=== PATIENT | female | born 1955 | race Caucasian/White ===

== ENCOUNTER 2017-09-25 07:13 | Emergency (ER) | payer BC ==
[2017-09-25] MEDS ORDERED: Ketorolac INJ* 30 MG/ML 1 ML VIAL IV ONE (07:45)
[2017-09-25] MEDS ORDERED: NS 0.9% 1000 ML* 1,000 ML IV ONE (07:45)
--- NOTE | 2017-09-25 09:05 | RAD ---
HISTORY: Neck pain, worse on right COMPARISONS: October 28, 2014 TECHNIQUE: Multiple contiguous axial CT scans were obtained of the cervical spine without intravenous contrast, with coronal and sagittal multiplanar reformations. FINDINGS: BRAIN: The visualized brain is unremarkable CENTRAL CANAL: Evaluation of the central canal is limited on CT technique; however, there is no obvious canalicular mass or epidural hemorrhage. ALIGNMENT: There is straightening of the cervical lordosis. VERTEBRAL BODIES: There is anterolateral marginal osteophyte formation most pronounced at C5-C6 and C6-C7. JOINTS: There is diffuse uncovertebral and facet osteoarthritis. 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 MUSCULATURE: Unremarkable INTERVERTEBRAL DISCS: There is diffuse loss of intervertebral disc height. AXIAL IMAGES: C2-C3: There is a partially calcified right lateral recess disc protrusion measuring 0.4 cm in depth. There is no osseous neural from narrowing or central canal stenosis. C3-C4: There is a mild broad-based disc osteophyte complex. There is a central calcified disc protrusion versus central posterior osteophyte measuring 0.3 cm in depth. There is bilateral uncovertebral hypertrophy. There is moderate left neural foraminal narrowing. There is no significant central canal stenosis. C4-C5: There is bilateral uncovertebral and facet hypertrophy. There is moderate left neural foraminal narrowing. There is no osseous central canal stenosis. C5-C6: There is a broad-based disc osteophyte convex bilateral uncovertebral facet hypertrophy. There is severe bilateral neural foraminal narrowing. There is mild narrowing of the central canal. C6-C7: There is no osseous neural foraminal narrowing or central canal stenosis. C7-T1: There is no osseous neural foraminal narrowing or central canal stenosis. SOFT TISSUES: The visualized soft tissues of the neck are unremarkable. The prevertebral fat stripe is preserved. OTHER: None. IMPRESSION: 1. DEGENERATIVE DISC DISEASE AND OSTEOARTHRITIS. 2. THERE IS MILD NARROWING OF THE CENTRAL CANAL AT C5-C6. 3. THERE IS MULTILEVEL NEURAL FORAMINAL NARROWING DESCRIBED ABOVE.
[2017-09-25] MEDS ORDERED: oxyCODONE/Acetamin 5/325 MG* TAB PO ONE (09:47)
[2017-09-25] MEDS ORDERED: Methocarbamol TAB* 500 MG PO ONE (09:47)
[2017-09-25 10:21] VITALS: BP 125/52
--- NOTE | 2017-09-25 17:51 | ED ---
Tai Owens Thomas, scribed for Rajesh Birto MD on 09/25/17 at 0737 . Neck Pain - HPI Summary HPI Summary: The patient is a 62 year old female complaining of neck pain and neck stiffness that began two days ago but significantly worsened this morning. The pain located on the right side of her neck. She complains of some right shoulder pain when she moves her right arm. Yesterday, she took ibuprofen and Robaxin 750 mg for the pain. She did not take any pain medication so far today. She denies weakness and numbness. - History of Current Complaint Chief Complaint: EDNeckComplaint Stated Complaint: NECK PAIN Time Seen by Provider: 09/25/17 07:29 Hx Obtained From: Patient Mechanism Of Injury: No Known Trauma Timing: Constant Onset/Duration: Started days ago - 2, Still Present, Worse Since - this AM Severity Currently: Severe Pain Intensity: 8 Pain Scale Used: 0-10 Numeric Location: Discrete At: - right side of neck Aggravating Factors: Movement Alleviating Factors: Nothing Associated Signs & Symptoms: Positive: Negative - numbness. Negative: Fever, Weakness - Allergies/Home Medications Allergies/Adverse Reactions: Allergies Allergy/AdvReac Type Severity Reaction Status Date / Time Iodinated Contrast- Oral and Allergy Severe Hives Verified 09/25/17 08:20 IV Dye PMH/Surg Hx/FS Hx/Imm Hx Musculoskeletal History: Reports: Hx Back Problems Denies: Hx Osteoporosis Sensory History: Denies: Hx Legally Blind, Hx Deafness EENT History: Denies: Hx Deafness - Cancer History Hx Chemotherapy: No Hx Radiation Therapy: No - Surgical History Surgery Procedure, Year, and Place: gastric bypass surgery, 4 laminectomies Infectious Disease History: No Infectious Disease History: Denies: Traveled Outside the [place] in Last 30 Days - Family History Known Family History: Positive: Diabetes, Renal Disease - Social History Alcohol Use: None Substance Use Type: Reports: None Smoking Status (MU): Never Smoked Tobacco Review of Systems Negative: Fever Positive: Other - Neck pain, neck stiffness, right shoulder pain Negative: Weakness, Numbness All Other Systems Reviewed And Are Negative: Yes Physical Exam - Summary Physical Exam Summary: General: well-appearing, no pain distress Skin: warm, color reflects adequate perfusion, dry Head: normal Eyes: EOMI, ALLISON ENT: normal Neck: She is tender to palpation to the right posterior lateral neck. She has pain with any range of motion of the neck. She has pain in the right neck with movement of the right shoulder. Respiratory: CTA, breath sounds present Cardiovascular: RRR Abdomen: soft, nontender Bowel: present Musculoskeletal: She has pain with any range of motion of the neck. She has pain in the right neck with movement of the right shoulder. , 5/5 strength, and no sensation deficit. The hands have good capillary refill. Neurological: normal, sensory/motor intact, A&O x3 Psychological: affect/mood appropriate Triage Information Reviewed: Yes Vital Signs On Initial Exam: Initial Vitals Temp Pulse Resp BP Pulse Ox 97.2 F 67 18 133/66 100 09/25/17 07:17 09/25/17 07:17 09/25/17 07:17 09/25/17 07:17 09/25/17 07:17 Vital Signs Reviewed: Yes Diagnostics - Vital Signs Vital Signs Temp Pulse Resp BP Pulse Ox 09/25/17 07:17 97.2 F 67 18 133/66 100 - Laboratory Lab Statement: Any lab studies that have been ordered have been reviewed, and results considered in the medical decision making process. - CT CT C-Spine CT Interpretation: No Acute Changes - 1. DEGENERATIVE DISC DISEASE AND OSTEOARTHRITIS. 2. THERE IS MILD NARROWING OF THE CENTRAL CANAL AT C5-C6. 3. THERE IS MULTILEVEL NEURAL FORAMINAL NARROWING DESCRIBED ABOVE. Dr. Brito has reviewed this report. CT Interpretation Completed By: Radiologist Neck Course/Dx - Course Course Of Treatment: Medications reviewed. Allergies noted. BP noted and patient urged to follow up with primary care. PAIN IMPROVED IN ED. DISCUSSED CT RESULTS WITH THE PATIENT AND HE . - Diagnoses Provider Diagnoses: Elevated BP without diagnosis of hypertension, Neck pain Discharge - Sign-Out/Discharge Documenting (check all that apply): Discharge - Discharge Plan Condition: Stable Disposition: HOME Patient Education Materials: Acute Neck Pain (ED) Referrals: Amairani Warren MD [Primary Care Provider] - Additional Instructions: FOLLOW UP WITH YOUR DOCTOR. RETURN TO THE EMERGENCY DEPARTMENT FOR ANY WORSENING OF YOUR CONDITION; WEAKNESS , NUMBNESS OR QUESTIONS OR CONCERNS. YOUR BLOOD PRESSURE WAS ELEVATED TODAY; FOLLOW UP WITH YOUR PRIMARY CARE DOCTOR WITHIN ONE WEEK. - Billing Disposition and Condition Condition: STABLE Disposition: HOME The documentation as recorded by the Tai kent Thomas accurately reflects the service I personally performed and the decisions made by me, Rajesh Brito MD.
== END 2017-09-25 10:19 | disposition home or self-care (01) ==
LOC: ED 07:13
DX: M54.2 Cervicalgia (principal); R03.0 Elevated blood-pressure reading, without diagnosis of hypertension; M25.511 Pain in right shoulder; M51.35 Other intervertebral disc degeneration, thoracolumbar region
CPT/HCPCS: 72125; 96361; 96374; 99282; A9270-GY; J1885